=== PATIENT | male | born 1970 | race Caucasian/White ===

== ENCOUNTER → 2023-12-16 | Outpatient (CLI) | payer BC ==
--- NOTE | 2023-12-16 15:09 | CT ---
EXAMINATION TYPE: CT abdomen pelvis w con CT DLP: 1377.1 mGycm, Automated exposure control for dose reduction was used. DATE OF EXAM: 12/16/2023 2:52 PM COMPARISON: None CLINICAL INDICATION:Male, 52 years old with history of R31.9 HEMATURIA; Hematuria x 2 months TECHNIQUE: Standard CT of the abdomen and pelvis following the administration of 100 cc of Isovue 3 00 IV contrast material and oral contrast. Coronal and sagittal reformats were performed. FINDINGS: LOWER CHEST: Unremarkable ABDOMEN LIVER: Unremarkable GALLBLADDER AND BILE DUCTS: Gallbladder is surgically absent with mild extra hepatic biliary dilatati on likely physiologic and a postcholecystectomy change. No CT evidence of choledocholithiasis. No int rahepatic biliary ductal dilatation. PANCREAS: Unremarkable. SPLEEN: Unremarkable. ADRENAL GLANDS: Unremarkable left adrenal gland. Right adrenal gland 1.8 cm nodule with Hounsfield un it of 41. KIDNEYS AND URETERS: No evidence of hydronephrosis or renal calculus. The kidneys enhance symmetrical ly. Bilateral renal cysts with thin inferior right renal exophytic 2.1 cm cyst a renal sinus 2.4 cm c yst and in cortical right upper pole 1.8 cm cyst. Left renal mid kidney exophytic 2.3 cm cyst with 2 additional subcentimeter hypodense foci which are too small to characterize but likely represent cyst s. No suspicious enhancing lesion identified. The visualized portions of the upper renal collecting s ystems are unremarkable on delayed imaging. PELVIS BLADDER: Unremarkable within limitations. No contrast is identified within the urinary bladder due to lack of urogram order. REPRODUCTIVE: Unremarkable. ABDOMEN & PELVIS STOMACH AND BOWEL: Stomach and duodenum are unremarkable. No focal bowel wall thickening or surroundi ng inflammatory changes. The appendix is within normal limits. Enteric contrast reaches the mid small bowel. Moderate colonic stool burden. No evidence of bowel obstruction. PERITONEUM: No evidence of pneumoperitoneum or free fluid. VASCULATURE: Minimal atherosclerotic calcifications are present throughout the abdominal aorta and it s branches. No evidence of aortic aneurysm. Pelvic phleboliths. MUSCULOSKELETAL: No acute osseous abnormalities. 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 Minimal multilevel degenerative disc disease. LYMPH NODES: No gross evidence for lymphadenopathy. SOFT TISSUE/ABDOMINAL WALL: Patulous bilateral inguinal rings. IMPRESSION: 1. No acute abdominal/pelvic process. No evidence of obstructive uropathy. 2. Bilateral renal cysts without suspicious enhancing renal lesions. If there is continued clinical c oncern, consider further evaluation with CT urogram. 3. Indeterminate right adrenal gland 1.8 cm nodule. Consider 12 month follow-up adrenal CT versus # 2 recommendation. 4. Post cholecystectomy changes. [facility], , 12/16/2023 3:06 PM
== END | disposition home or self-care (01) ==
LOC: RADCTMAIN 13:04
PROVIDERS: ATTEND Family Medicine
DX: N28.1 Cyst of kidney, acquired (principal); R31.9 Hematuria, unspecified; Z90.49 Acquired absence of other specified parts of digestive tract
CPT/HCPCS: 74177; Q9967